=== PATIENT | female | born 1970 | race Caucasian/White ===

== ENCOUNTER → 2017-08-30 | Outpatient (CLI) | payer OTHER | END | disposition home or self-care (01) | LOC: CFH 15:01 | PROVIDERS: ATTEND Obstetrics & Gynecology Gynecology | DX: Z12.31 Encounter for screening mammogram for malignant neoplasm of breast (principal) | CPT/HCPCS: 77067 ==

== ENCOUNTER 2018-08-06 07:11 | Day surgery (SDC) | payer OTHER ==
[~2018-08-06] VITALS: Ht 162.6 cm; Wt 131.3 kg
[~2018-08-06 07:11] MED LIST: None at this Time
[2018-08-06] MEDS ORDERED: MIDAZOLAM 1 MG/ML, 2ML ONE (08:03)
[2018-08-06] MEDS ORDERED: FENTANYL PF 250 MCG/5ML ONE (08:03)
[2018-08-06] MEDS ORDERED: ROCURONIUM 10MG/ML,5ML ONE (08:04)
[2018-08-06] MEDS ORDERED: GLYCOPYRROLATE 0.2MG/1ML, 5ML ONE (08:04)
[2018-08-06] MEDS ORDERED: DEXAMETHASONE 4 MG/ML, 1ML ONE (08:04)
[2018-08-06] MEDS ORDERED: CEFAZOLIN 1,000 MG ONE ×2 (08:04→09:15)
[2018-08-06] MEDS ORDERED: NEOSTIGMINE 1 MG/ML, 10ML ONE (08:04)
[2018-08-06] MEDS ORDERED: ONDANSETRON 2MG/ML, 2ML ONE (08:04)
[2018-08-06] MEDS ORDERED: PROPOFOL 10 MG/ML, 20ML ONE (08:04)
[2018-08-06] MEDS ORDERED: ROPIvacaine/PF 0.5%, 30 ML ONE (08:08)
[2018-08-06 08:19] VITALS: BP 133/86
[2018-08-06] MEDS ORDERED: LACTATED RINGERS 1,000 ML IV SCH (08:23)
[2018-08-06 08:41] LABS: HCG UR SG 1.023 (1.003-1.030)
[2018-08-06] MEDS ORDERED: EPINEPHRINE 1 MG/ML, 1ML ONE (08:54)
[2018-08-06] MEDS ORDERED: BUPIVACAINE/PF 0.25% ONE (08:54)
[2018-08-06] MEDS ORDERED: MEPERIDINE/PF 25MG/0.5ML IVPush PRN (09:00)
[2018-08-06] MEDS ORDERED: ONDANSETRON 2MG/ML, 2ML IV PRN (09:00)
[2018-08-06] MEDS ORDERED: MORPHINE SULFATE 4 MG/ML, 1ML IVPush PRN (09:00)
[2018-08-06] MEDS ORDERED: PROMETHAZINE 12.5 MG SUPP PR PRN (09:00)
[2018-08-06] MEDS ORDERED: PROMETHAZINE 25 MG/ML, 1ML IM PRN ×2 (09:00)
[2018-08-06] MEDS ORDERED: PROMETHAZINE 25 MG SUPP PR PRN (09:00)
[2018-08-06] MEDS ORDERED: HYDROmorphone 2 MG/ML, 1ML IVPush PRN (09:00)
[2018-08-06] MEDS ORDERED: LABETALOL 5MG/ML, 20ML IV PRN (09:00)
[2018-08-06] MEDS ORDERED: ONDANSETRON ODT 8 MG PO PRN (09:00)
[2018-08-06] MEDS ORDERED: PROMETHAZINE 25 MG/ML, 1ML IV PRN (09:00)
[2018-08-06] MEDS ORDERED: OXYcodone 5 MG/5 ML ORAL.SOL UDC PO PRN (09:00)
[2018-08-06] MEDS ORDERED: ACETAMINOPHEN 325 MG TABLET PO PRN (09:00)
[2018-08-06] MEDS ORDERED: HALOPERIDOL 5 MG/ML IV PRN (09:00)
[2018-08-06] MEDS ORDERED: hydrALAzine 20 MG/ML, 1ML IV PRN (09:00)
[2018-08-06] MEDS ORDERED: FENTANYL PF 100 MCG/2ML ONE (11:05)
[2018-08-06] MEDS ORDERED: ACETAMINOPHEN 650 MG/20.3 ML UDC ONE (11:05)
[2018-08-06] MEDS ORDERED: OXYcodone 5 MG/5 ML ORAL.SOL UDC ONE (11:06)
[2018-08-06] MEDS: FENTANYL PF 100 MCG/2ML IV PRN ×2 (11:10→11:30)
== END 2018-08-06 14:10 | disposition home or self-care (01) ==
LOC: OUT 07:11
PROVIDERS: ATTEND Orthopaedic Surgery
DX: M75.111 Incomplete rotator cuff tear or rupture of right shoulder, not specified as traumatic (principal); M24.111 Other articular cartilage disorders, right shoulder; M75.41 Impingement syndrome of right shoulder; M66.321 Spontaneous rupture of flexor tendons, right upper arm; M94.211 Chondromalacia, right shoulder; E11.9 Type 2 diabetes mellitus without complications; G47.33 Obstructive sleep apnea (adult) (pediatric); Z87.891 Personal history of nicotine dependence
CPT/HCPCS: 29823; 29826; 29827; 29828; 64415; 81025; C1713; J0171; J0690; J1100; J2250; J2405; J2704; J2710; J2795; J3010; J3490; J7120

== ENCOUNTER → 2019-08-06 | Outpatient (CLI) | payer OTHER | END | disposition home or self-care (01) | LOC: CFH 07:16 | PROVIDERS: ATTEND Obstetrics & Gynecology Gynecology | DX: Z12.31 Encounter for screening mammogram for malignant neoplasm of breast (principal); N64.89 Other specified disorders of breast | CPT/HCPCS: 77067 ==

== ENCOUNTER → 2020-08-10 | Outpatient (CLI) | payer OTHER | END | disposition home or self-care (01) | LOC: CFH 07:28 | PROVIDERS: ATTEND Obstetrics & Gynecology Gynecology | DX: Z12.31 Encounter for screening mammogram for malignant neoplasm of breast (principal) | CPT/HCPCS: 77063; 77067 ==